=== PATIENT | female | born 1980 | race Caucasian/White ===

== ENCOUNTER 2019-08-23 15:16 | Emergency (ER) | payer OTHER ==
[~2019-08-23] VITALS: Ht 160 cm; Wt 77.1 kg
[2019-08-23] MEDS ORDERED: CEPHALEXIN MONOHYDRATE 500 MG CAPSULE PO ONE ×2 (16:17→16:30)
[2019-08-23] MEDS ORDERED: SULFAMETH/TRIMETH 800/160 MG 1 UDTAB TABLET ONE (16:18)
[2019-08-23 16:30] VITALS: BP 122/82
[2019-08-23] MEDS ORDERED: SULFAMETH/TRIMETH 800/160 MG 1 UDTAB TABLET PO ONE (16:30)
== END 2019-08-23 16:30 ==
LOC: ER 15:19
DX: L03.115 Cellulitis of right lower limb (principal); F19.10 Other psychoactive substance abuse, uncomplicated; G40.909 Epilepsy, unspecified, not intractable, without status epilepticus; G47.00 Insomnia, unspecified; Z02.89 Encounter for other administrative examinations
CPT/HCPCS: 93971-TC